=== PATIENT | male | born 2000 | race Caucasian/White ===

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

== ENCOUNTER 2024-11-16 07:26 | Emergency (ER) | payer BC ==
[~2024-11-16] VITALS: Ht 182.9 cm; Wt 87.6 kg
[~2024-11-16 07:26] MED LIST: ALBUTEROL S5 MG/1 ML NEB; ULTRAM50 MG PO
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
[2024-11-16] MEDS ORDERED: GABAPENTIN300 MG PO (07:39)
[2024-11-16] MEDS ORDERED: METHOCARBAMOL500 MG PO (07:39)
[2024-11-16] MEDS ORDERED: OXYCODONE HYDROC5 GM (07:39)
[2024-11-16] MEDS ORDERED: PREDNISONE10 MG (07:40)
[2024-11-16 09:04] VITALS: BP 135/80
== END 2024-11-16 09:04 | disposition home or self-care (01) ==
LOC: ED 07:26
DX: T81.31XA Disruption of external operation (surgical) wound, not elsewhere classified, initial encounter (principal); Z79.52 Long term (current) use of systemic steroids; Z79.899 Other long term (current) drug therapy
CPT/HCPCS: 29125; 99283